=== PATIENT | male | born 1940 | race Caucasian/White ===

== ENCOUNTER 2017-09-17 18:23 | Emergency (ER) | payer MEDICARE, BC, SELFPAY ==
[2017-09-17 18:25] VITALS: BP 137/73; PULSE 43; RESP 17; TEMP 37.1; O2SAT 94; BMI 32.2
[2017-09-17 19:45] LABS: Bedside Glucose 68 mg/dL (70-110)
--- NOTE | 2017-09-17 19:56 | ED.VISSUMM ---
- ER Visit Summary Date of Service: 09/17/17 Chief Complaint: Needs insulin History of Present Illness: The patient is a 77 M presenting stating that he needs insulin. Patient is visiting from [facility]. He states he packed all of his oral medications and insulin needles. He forgot to pack his Lantus. He has no complaints. He states he checks his blood sugar regularly. Physical Examination: Vitals are stable. Patient is afebrile. Alert no acute distress. HEENT exam is unremarkable. Neck is supple. Lungs are clear and equal bilaterally. Heart is regular rate and rhythm. Abdomen is soft nontender nondistended. Extremities are unremarkable. Skin is warm and dry. No focal neurologic deficit. Remainder of exam is unremarkable. Emergency Department Course and Treatment: BGT was 68. He was given a meal in the emergency department. He was given his home dose of Lantus. He is advised to continue to check his blood sugar at home. He is given a prescription for Lantus. Advised return ED if worsening complaints. Disposition: Discharge home Impression: Medication refill This note was generated with [employer] dictation software. It may contain incorrect words, spelling, and punctuation that were not noted in review of the chart prior to signing ED Disposition - Plan for ED Patient: Chief Complaint: Med Refill Referrals: [facility] Doctor,Out of [Primary Care Provider] -
--- NOTE | 2017-09-17 19:57 | ED.DEP ---
ED Disposition - Plan for ED Patient: Chief Complaint: Med Refill Instructions: Med Refill Prescriptions: Insulin Glargine,Hum.rec.anlog [Lantus] 45 unit SQ QHS #7 ml Referrals: [facility] [address] Doctor,Out of [Primary Care Provider] -
[2017-09-17 20:45] VITALS: PULSE 75
--- NOTE | 2017-09-17 20:45 | ED.RN ---
REVIEWED D/C INSTRUCTIONS, FOLLOW UP CARE, PRESCRIPTION, AND S/S THAT WOULD WARRANT A RETURN TO THE ED WITH PT. PT VERBALIZED AN UNDERSTANDING AND DENIES FURTHER QUESTIONS FOR THIS RN. PT SKIN P/W/D, RESP EVEN AND UNLABORED, PT A&O X 3, NO DISTRESS NOTED. PT AMBULATED OUT OF ED, GAIT STEADY.
== END 2017-09-17 20:46 | disposition home or self-care (01) ==
LOC: ED 19:53
PROVIDERS: Emergency Provider Emergency Medicine
DX: Z76.0 Encounter for issue of repeat prescription (principal); I25.10 Atherosclerotic heart disease of native coronary artery without angina pectoris; E11.9 Type 2 diabetes mellitus without complications; Z86.79 Personal history of other diseases of the circulatory system; Z86.39 Personal history of other endocrine, nutritional and metabolic disease; Z79.4 Long term (current) use of insulin
CPT/HCPCS: 82962; 96372; 99282